=== PATIENT | male | born 2000 | race Caucasian/White ===

== ENCOUNTER 2018-03-15 09:24 | Emergency (ER) | payer BC ==
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
[2018-03-15 11:12] LABS: ABS Basophils 0.1 10^3/ul (0-0.2); ABS Eosinophils 0 10^3/ul (0-0.6); ABS Lymphocytes 1.2 10^3/ul (1.0-4.8); ABS Monocytes 0.8 10^3/ul (0-0.8); ABS Neutrophils 15.7 10^3/ul (1.5-7.7); ABS Nucleated RBC 0 10^3/ul; Eosinophil % 0 % (0-6); Hematocrit 39 % (42-52); Hemoglobin 13.4 g/dl (14.0-18.0); Lymphocyte % 6.9 % (25-47); Mean Corpuscular HGB Conc 34 g/dl (31-36); Mean Corpuscular Hemoglobin 29 pg (27-31); Mean Corpuscular Volume 84 fL (80-94); Mean Platelet Volume 9.5 um3 (7.4-10.4); Nucleated Red Blood Cells % 0; Platelet Count 171 10^3/ul (150-450); Red Blood Count 4.67 10^6/ul (4.00-5.40); Red Cell Distribution Width 13 % (10.5-15); White Blood Count 17.8 10^3/ul (3.5-10.8)
[2018-03-15 11:30] LABS: EGFR Non-African American 84.5 (>60)
--- NOTE | 2018-03-15 11:51 | RAD ---
HISTORY: Head injury, COMPARISONS: MRI dated January 09, 2018 TECHNIQUE: Multiple contiguous axial CT scans were obtained of the head without intravenous contrast. FINDINGS: HEMORRHAGE/INFARCT: There is no hemorrhage or acute infarct. MASSES/SHIFT: There is no mass or shift. EXTRA-AXIAL SPACES: There are no extra-axial fluid collections. SULCI AND VENTRICLES: The sulci and ventricles are normal in size and position for the patient's stated age. CEREBRUM: There is post surgical change to the anterior insula. The nonenhancing frontal-insular lesion noted on MRI is not visualized on the current examination. BRAINSTEM: There are no focal parenchymal abnormalities. CEREBELLUM: There are no focal parenchymal abnormalities. VESSELS: The vessels are grossly normal. PARANASAL SINUSES: The paranasal sinuses are clear. ORBITS: The orbits are unremarkable. BONES AND SOFT TISSUE: The patient is status post right frontotemporal craniotomy OTHER: None IMPRESSION: NO ACUTE INTRACRANIAL PATHOLOGY.
[2018-03-15] MEDS ORDERED: Lidocaine/Epineph/Tetraca SOL* (LET solution) 4 ML BTL TOPICAL ONE (12:57)
--- NOTE | 2018-03-15 15:18 | ED ---
Progress - Progress Note Progress Note: 4CM X 1.5CM X 4MM deep Stellate Buffered lidocaine debridement with sterile water and hibaclens w/ sponge (mild friction) - scant debridement irrigation w/ sterile saline - 40cc - clean layer closure: #5 5-0 absorbable sutures #15 6-0 poly sutures covered with triple anbx ointment and sterile telfa dressing - pt tolerated well Course/Dx - Course Course Of Treatment: A 17-year-old M presents to the ED with a CC of AMS due to LSD use since 0000. (+) laceration on forehead, intermittent syncopal episodes. (-) neck pain, SI, HI. PMHx brain cancer. A CT brain was (-). Discharge - Discharge Plan Prescriptions: Cephalexin CAP* [Keflex CAP*] 500 mg PO BID #10 cap Patient Education Materials: Care For Your Stitches (ED), Facial Laceration (ED ) Referrals: Ingrid Beck MD [Primary Care Provider] - Additional Instructions: Gently wash wound with soap and water, rinse well and pat dry with clean cloth. Reapply triple antibiotic ointment and clean gauze dressing. Continue this daily until sutures are removed. Call your PCP to schedule wound recheck and suture removal in 5-7 days. You may apply ice for pain/swelling. * If you develop redness, swelling, streaking, purulent drainage, fevers or chills, seek medical attention sooner or return to the emergency department.
[2018-03-15 16:15] VITALS: BP 146/91
== END 2018-03-15 15:45 | disposition home or self-care (01) ==
LOC: ED 09:24
DX: F16.10 Hallucinogen abuse, uncomplicated (principal); S01.81XA Laceration without foreign body of other part of head, initial encounter; W22.8XXA Striking against or struck by other objects, initial encounter; Y93.9 Activity, unspecified; Y92.9 Unspecified place or not applicable; Z85.841 Personal history of malignant neoplasm of brain
CPT/HCPCS: 12052; 36415; 70450; 80053; 80320; 80329; 84443; 85025; 99285; G0480

== ENCOUNTER 2018-12-11 14:14 | Emergency (ER) | payer BC ==
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
--- NOTE | 2018-12-11 14:22 | UC ---
Hand/Wrist HPI - HPI Summary HPI Summary: 18 yo male presents with right hand injury. He tells me that today around 1000, he became upset "at life" and punched a door frame. Since that time has had pain and swelling. He is right handed. He has done this multiple times in the past out of frustration - this is an ongoing issue and mom with him today says they are working with a therapist and med adjustments for behavior issues. Pt denies SI/HI or wanting to hurt himself or others. - History Of Current Complaint Stated Complaint: RT HAND INJURY Time Seen by Provider: 12/11/18 14:21 Hx Obtained From: Patient Onset/Duration: Sudden Onset Severity Initially: Moderate Severity Currently: Moderate Pain Intensity: 7 Pain Scale Used: 0-10 Numeric - Allergies/Home Medications Allergies/Adverse Reactions: Allergies Allergy/AdvReac Type Severity Reaction Status Date / Time codeine Allergy Hives Verified 12/11/18 14:39 Home Medications: Home Medications Ergocalciferol (Vitamin D2) [Vitamin D2] 50 mcg PO 12/11/18 [History] Escitalopram Oxalate [Lexapro 10 mg] 20 mg PO DAILY 12/11/18 [History Confirmed 12/11/18] Omeprazole CAP (NF) [Prilosec CAP* 20 MG] 20 mg PO DAILY 12/11/18 [History Confirmed 12/11/18] PMH/Surg Hx/FS Hx/Imm Hx GI/ History: Gastroesophageal Reflux Psychological History: Anxiety, Depression - Surgical History Surgical History: Yes Surgery Procedure, Year, and Place: LABRUM LT SHOULDER REPAIR- 2014, ORIF RT FOREARM- AND REMOVED 2009;. BRAIN SURGERY 10/2016 - CRANIOTOMY - @ [facility] - Family History Known Family History: Positive: None - Social History Lives: With Family Alcohol Use: None Substance Use Type: Other - LSD Smoking Status (MU): Never Smoked Tobacco Review of Systems All Other Systems Reviewed And Are Negative: Yes Constitutional: Positive: Negative Skin: Positive: Negative Respiratory: Positive: Negative Cardiovascular: Positive: Negative Neurovascular: Positive: Negative Musculoskeletal: Positive: Other: - Right hand pain Neurological: Positive: Negative Psychological: Positive: Negative Physical Exam - Summary Physical Exam Summary: GENERAL: NAD. WDWN. No pain distress. SKIN: No rashes, sores, lesions, or open wounds. CHEST: No accessory muscle use. Breathing comfortably and in no distress. CV: Pulses intact radial and ulnar. Cap refill <2seconds MSK: RIGHT HAND: Moderate edema and mild ecchymosis overlying dorsal aspect of 4th and 5th MC. FROM with little pain. Strength 5/5 including actuarial technician strength. No snuffbox tenderness or wrist pain. NEURO: Alert. Sensations intact hand and all fingers. PSYCH: Age appropriate behavior. Triage Information Reviewed: Yes Vital Signs: Vital Signs: Temp Pulse Resp BP Pulse Ox 98.9 F 49 18 130/80 99 12/11/18 14:31 12/11/18 14:31 12/11/18 14:31 12/11/18 14:31 12/11/18 14:31 Vital Signs Reviewed: Yes Procedures - Splinting Right Upper Extremity Hand-Made Type: orthoglass Splint: ulnar Pre-Proc Neuro Vasc Exam: normal Post-Proc Neuro Vasc Exam: normal Hand/Wrist Course/Dx - Course Course Of Treatment: XR: REPORT AND IMPRESSION: #. Nonarticular diaphyseal fracture of the fourth metacarpal with only slight apex dorsal angulation. Overlying soft tissue swelling. #. Chronic fracture at the proximal pole of the scaphoid based on comparison with the February 20, 2016 radiographs. The scaphoid is irregular in morphology with sclerosis and cystic change suspicious for AVN. #. 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 Articular alignment is otherwise unremarkable. Pt was placed in an ulnar-gutter splint and advised to RICE and f/u with Orthopedics as soon as possible. - Differential Dx/Diagnosis Provider Diagnosis: Fracture of fourth metacarpal bone of right hand Discharge - Sign-Out/Discharge Documenting (check all that apply): Patient Departure All imaging exams completed and their final reports reviewed: Yes - Discharge Plan Condition: Stable Disposition: HOME Patient Education Materials: Hand Fracture (ED) Referrals: Ingrid Beck MD [Primary Care Provider] - Ce Nair MD [Medical Doctor] - As Soon As Possible Additional Instructions: If you develop a fever, shortness of breath, chest pain, new or worsening symptoms - please call your PCP or go to the ED. 1) Rest, Ice, and elevate your hand as much as possible 2) Please keep your splint clean dry and intact until your appointment with Orthopedics 3) Please call Orthopedics at the number below to schedule a follow up appointment as soon as possible - Billing Disposition and Condition Condition: STABLE Disposition: Home - Attestation Statements Provider Attestation: I was available for consult. This patient was seen by the [facility]. The patient was not presented to, seen by, or examined by me. -Maxine
[2018-12-11 14:39] VITALS: BP 130/80
== END 2018-12-11 14:53 | disposition home or self-care (01) ==
LOC: UCEAST 14:14
DX: S62.304A Unspecified fracture of fourth metacarpal bone, right hand, initial encounter for closed fracture (principal); W22.09XA Striking against other stationary object, initial encounter; Y92.9 Unspecified place or not applicable; K21.9 Gastro-esophageal reflux disease without esophagitis; F41.9 Anxiety disorder, unspecified; F32.9 Major depressive disorder, single episode, unspecified; Z88.5 Allergy status to narcotic agent
CPT/HCPCS: 99211; G0463

== ENCOUNTER 2019-08-01 16:06 | Emergency (ER) | payer BC ==
[2019-08-01 16:17] VITALS: BP 132/78
== END 2019-08-01 17:35 | disposition left against medical advice (07) ==
LOC: ED 16:06
DX: R07.9 Chest pain, unspecified (principal); Z53.21 Procedure and treatment not carried out due to patient leaving prior to being seen by health care provider
CPT/HCPCS: 93005; 99281

== ENCOUNTER 2019-08-07 14:03 | Inpatient (IN) | payer BC ==
--- NOTE | 2019-08-07 15:38 | ED ---
Psychiatric Complaint - HPI Summary HPI Summary: Patient is a 19 y/o M presenting to [facility] with complaints of increased anger and aggression, anxiety, and depression. He states that he has had increased anger over the past month and has been taking this anger "out on the wrong people". Patient states that he does not have "outlets" for his anger. He states he "bugged out" on his mother today, did some "self-reflection", and subsequently came to ED for evaluation. Patient' s sister is in the room. She states that the patient has been acting increasingly irrational and in a nonsensical manner. Patient notes that he had felt similar in high school but states that football helped alleviate his anger. He denies SI and hallucinations. Patient reports that he has not physically taken out his anger on another person but states "I could really do some damage if I wanted to". PMHx of brain tumor and right aortic stenosis is endorsed. Patient states that he had tumor removal surgery, tumor was partially removed but the remainder was deemed "unoperable". Patient is on omeprazole and vitamin D3. He reports occasional tobacco usage. He notes some numbness to his left side that has been present for the past few weeks. He is being followed by a neurologist for this. Home medications and allergies are reviewed. - History Of Current Complaint Chief Complaint: EDMentalHealth Time Seen by Provider: 08/07/19 14:48 Hx Obtained From: Patient Onset/Duration: Lasting Weeks, Still Present Timing: Weeks Character: Depressed, Anxious, Angry Associated Signs And Symptoms: Negative: Hallucinating Has Suicidal: Denies: Thoughts - Allergies/Home Medications Allergies/Adverse Reactions: Allergies Allergy/AdvReac Type Severity Reaction Status Date / Time codeine Allergy Hives Verified 08/07/19 14:11 Home Medications: Home Medications Cholecalciferol (Vitamin D3) [Vitamin D3] 125 mcg PO DAILY 08/07/19 [History Confirmed 08/07/19] Omeprazole 20 mg PO DAILY 08/07/19 [History Confirmed 08/07/19] PMH/Surg Hx/FS Hx/Imm Hx Endocrine/Hematology History: Denies: Hx Diabetes, Hx Thyroid Disease Cardiovascular History: Denies: Hx Hypertension, Hx Pacemaker/ICD Respiratory History: Denies: Hx Asthma, Hx Chronic Obstructive Pulmonary Disease (COPD) GI History: Denies: Hx Ulcer History: Denies: Hx Renal Disease Musculoskeletal History: Reports: Other Musculoskeletal History - HEART STENOSIS Sensory History: Denies: Hx Contacts or Glasses, Hx Hearing Aid Opthamlomology History: Denies: Hx Contacts or Glasses Psychiatric History: Denies: Hx Panic Disorder - Cancer History Cancer Type, Location and Year: BRAIN - ASTROCYTOMA Hx Chemotherapy: No Hx Radiation Therapy: Yes - DONE WITH RADIATION - Surgical History Surgery Procedure, Year, and Place: LABRUM LT SHOULDER REPAIR- 2014, ORIF RT FOREARM- AND REMOVED 2009;. BRAIN SURGERY 10/2016 - CRANIOTOMY - @ [facility] Infectious Disease History: No Infectious Disease History: Denies: Hx Hepatitis, Hx Human Immunodeficiency Virus (HIV), Traveled Outside the in Last 30 Days - Family History Known Family History: Negative: Seizure Disorder - Social History Alcohol Use: None Hx Substance Use: Yes Substance Use Type: Reports: None Substance Use Comment - Amount & Last Used: daily Hx Tobacco Use: No Smoking Status (MU): Current Some Day Smoker Type: Cigarettes Review of Systems Positive: Numbness Psychological: Other - positive - increased aggression and anger; negative - SI , hallucinations Positive: Anxious, Depressed All Other Systems Reviewed And Are Negative: Yes Physical Exam - Summary Physical Exam Summary: Constitutional: Well-developed, Well-nourished, Alert. (-) Distressed Skin: Warm, Dry HENT: Normocephalic; Atraumatic Eyes: Conjunctiva normal Neck: Musculoskeletal ROM normal neck. (-) JVD, (-) Stridor, (-) Tracheal deviation Cardio: Rhythm regular, rate normal, Heart sounds normal; Intact distal pulses; Radial pulses are 2+ and symmetric. (-) Murmur Pulmonary/Chest wall: Effort normal. (-) Respiratory distress, (-) Wheezes, (-) Rales Abd: Soft, (-) tenderness, (-) Distension, (-) Guarding, (-) Rebound Musculoskeletal: (-) Edema Lymph: (-) Cervical adenopathy Neuro: Alert, Oriented x3 Psych: Depressed affect Triage Information Reviewed: Yes Vital Signs On Initial Exam: Initial Vitals Temp Pulse Resp BP Pulse Ox 99.4 F 66 16 157/115 100 08/07/19 14:06 08/07/19 14:06 08/07/19 14:06 08/07/19 14:06 08/07/19 14:06 Vital Signs Reviewed: Yes Procedures - Sedation Patient Received Moderate/Deep Sedation with Procedure: No Diagnostics - Vital Signs Vital Signs Temp Pulse Resp BP Pulse Ox 08/07/19 14:06 99.4 F 66 16 157/115 100 - Laboratory Result Diagrams: 08/07/19 16:21 08/07/19 16:20 Lab Statement: Any lab studies that have been ordered have been reviewed, and results considered in the medical decision making process. Re-Evaluation - Re-Evaluation First Eval Re-Evaluation Time: 15:40 Comment: Medically cleared for MHE at this time. Course/Dx - Course Course Of Treatment: Patient is here with worsening anger over the past couple of weeks secondary to his diagnosed brain tumor. Patient has no neurologic deficits and is overall well-appearing. Patient's no new neurologic complaints. Patient is medically cleared by myself. Patient signout to Dr. Barr pending mental health eval - Differential Dx/Clinical Impression Provider Diagnosis: Depression, Anger, Mood disorder Discharge ED - Sign-Out/Discharge Documenting (check all that apply): Sign-Out Patient Signing out patient TO: Ilan Simmons - Discharge Plan Condition: Stable Disposition: [facility]IATRIC FAC[facility] [place] - Billing Disposition and Condition Condition: STABLE Disposition: Psychiatric Facility [facility] - Attestation Statements Document Initiated by Scribe: Yes Documenting Scribe: ORALIA GARRIDO Provider For Whom Rosa is Documenting (Include Credential): CIRO BURGOS MD Scribe Attestation: ORALIA Milan, scribed for CIRO BURGOS MD on 08/08/19 at 1055. Scribe Documentation Reviewed: Yes Provider Attestation: The documentation as recorded by the ORALIA neves accurately reflects the service I personally performed and the decisions made by me, CIRO BURGOS MD Status of Scribe Document: Viewed
[2019-08-07 16:31] LABS: ABS Basophils 0.1 10^3/ul (0-0.2); ABS Lymphocytes 2.4 10^3/ul (1.0-4.8); ABS Monocytes 0.4 10^3/ul (0-0.8); ABS Neutrophils 6.8 10^3/ul (1.5-7.7); Eosinophil % 0.4 %; Hematocrit 43 % (42-52); Hemoglobin 15.4 g/dL (14.0-18.0); Lymphocyte % 24.8 %; Mean Corpuscular HGB Conc 35 g/dL (31-36); Mean Corpuscular Hemoglobin 30 pg (27-31); Mean Corpuscular Volume 84 fL (80-94); Mean Platelet Volume 9.4 fL (7.4-10.4); Platelet Count 213 10^3/uL (150-450); Red Blood Count 5.14 10^6 /uL (4.18-5.48); Red Cell Distribution Width 13 % (10-15); White Blood Count 9.8 10^3/uL (3.5-10.8)
--- OUTSIDE RECORDS SUMMARY | 2019-08-07 16:49 | XMS REPORT | Continuity of Care Document ---
:2000 External Reference #:[id number] Author Name Alycia Darden M.D., FACP (transmitted by agent of provider Karen Beaver) Address [address] [place] [id number] Care Team Providers Name Role Phone Ingrid Beck MD - Internal Care Team Information Gas Meter Repair Supervisor [phone] Medicine Nanci Alas MD - Cardiovascular Care Team Information Gas Meter Repair Supervisor [phone] Disease Problems Active Problems Provider Date Concussion with 1-24 hours loss of Joe Padilla M.D. 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 Onset: 09/04/2015 Aortic valve disorder Carlos Ward M.D. Onset: 12/20/2017 Gastroesophageal reflux disease Carlos Ward M.D. Onset: 12/20/2017 Congenital insufficiency of aortic valve Nanci Alas M.D. Onset: 09/08/2018 Social History Type Date Description Comments Sex Unknown ETOH Use Denies alcohol use Tobacco Use Start: Unknown Patient has never smoked Recreational Drug Use Negative For Denies Drug Use Recreational Drug Use Current Drug User Recreational Drug Use Current Drug User franklin Document: 09/08/18 - Initial Cons. Cardiology Smoking Status Reviewed: 08/02/19 Patient has never smoked Exercise Type/Frequency Exercises sporadically Allergies, Adverse Reactions, Alerts Active Allergies Reaction Severity Comments Date Codeine 08/31/2018 Inactive Allergies NKDA 05/19/2015 Medications Active Medications SIG Qnty Indications Ordering Date Provider Levocetirizine 1 by mouth 30tabs J30.89 Miguel Vitale NP 02/05/2019 Dihydrochloride every day 5mg Tablets Hydroxyzine HCL 1-2 tablets by 60tabs F41.9 Miguel Vitale NP 02/05/2019 25mg Tablets mouth every 6 hours as needed for anxiety Escitalopram Oxalate 1 by mouth 90tabs F41.9 Miguel Vitale NP 12/08/2018 20mg every day Tablets Fluticasone Propionate 2 sprays each 16gm J30.89 Miguel Vitale NP 11/20/2018 nostril qd. 50mcg/Act Suspension Vitamin D3 Ultra Potency 1 by mouth once 12tabs Miguel Vitale NP 10/22/2018 weekly for 12 20131Ohqw Tablets weeks. Omeprazole Take 1 capsule 30caps K21.9 Miguel Vitale NP 10/16/[address] by mouth once daily Immunizations Description No Information Available Vital Signs Date Vital Result Comment 08/02/2019 11:35am Height 72 inches 6'0" Weight 219.00 lb Heart Rate 63 /min BP Systolic 144 mmHg BP Diastolic 92 mmHg Body Temperature 98.4 F O2 % BldC Oximetry 98 % BMI (Body Mass Index) 29.7 kg/m2 02/05/2019 1:46pm Height 72 inches 6'0" Weight 234.00 lb Heart Rate 48 /min BP Systolic Sitting 138 mmHg BP Diastolic Sitting 80 mmHg BP Systolic Recheck 124 mmHg BP Diastolic Recheck 76 mmHg Body Temperature 98.2 F O2 % BldC Oximetry 96 % BMI (Body Mass Index) 31.7 kg/m2 Results Test Acquired Date Facility Test Result H/L Range Note Order 08/02/2019 [facility]-House EKG <pending> Procedures Date Code Description Status 08/02/2019 58313 EKG Tracing & Interpretation Completed Medical Devices Description No Information Available Encounters Type Date Location Provider Dx Diagnosis Office Visit 02/05/2019 [facility] Miguel Vitale NP F41.9 Anxiety disorder , 1:40p Medicine - [facility] unspecified J30.89 Other allergic rhinitis K21.9 Gastro-esophageal reflux disease without esophagitis Assessments Date Code Description Provider 08/02/2019 I47.9 Paroxysmal tachycardia, unspecified Alycia Darden M.D., FACP 08/02/2019 R53.83 Other fatigue Alycia Darden M.D., FACP 02/05/2019 F41.9 Anxiety disorder, unspecified Miguel Vitale NP 02/05/2019 J30.89 Other allergic rhinitis Miguel Vitale NP 02/05/2019 K21.9 Gastro-esophageal reflux disease without Miguel Vitale NP esophagitis Plan of Treatment Future Appointment(s):08/08/2019 4:20 pm - [facility] - Alycia Darden M.D., FACPI47.9 Paroxysmal tachycardia , unspecifiedComments:HEART RACING:I do not have a clear understanding of why this symptom is occurring. I would like to have you repeat an echocardiogram. Your last one was in 09/16.Your EKG today was normal. Try to keep a log of when your symptoms occur and in what context.Referral:Nanci Alas MD, Cardiovsclr DljiukfN45.83 Other fatigueComments:FATIGUE/ PM SWEATS:I would like to check some labs today. We talked about TB testing: unfortunately, we cannot place a ppd today.An entity that I would like to exclude is endocarditis since your heartvalve is known to be abnormal. For now, until we generate more data, I recommend that you keep yourself well hydrated.Follow up:Has appointment with Jessica Vitale: keep Functional Status Description No Information Available Mental Status Description No Information Available Referrals Refer to Reason for Referral Status Appt Date Nanci Alas MD pls repeat echo: 2 weeks of PM sweats, exclude Created [facility] [id number] [place] [id number] [phone]
[2019-08-07 16:56] LABS: Albumin 4.8 g/dL (3.2-5.2); Anion Gap 7 mmol/L (2-11); CO2 Carbon Dioxide 26 mmol/L (22-32); Calcium 9.8 mg/dL (8.6-10.3); Chloride 105 mmol/L (101-111); Potassium 4.4 mmol/L (3.5-5.0); Sodium 138 mmol/L (135-145)
[2019-08-07 17:02] LABS: ALT 23 U/L (7-52); AST 16 U/L (13-39); Albumin/Globulin Ratio 1.5 (1-3); Alkaline Phosphatase 47 U/L (34-104); BUN/Creatinine Ratio 13.7 (8-20); Blood Urea Nitrogen 14 mg/dL (6-24); EGFR African American 111.6 (>60); EGFR Non-African American 92.2 (>60); Globulin 3.2 g/dL (2-4)
[2019-08-07 17:17] LABS: Glucose 90 mg/dL (70-100)
[2019-08-07 17:25] LABS: Acetaminophen < 15 mcg/mL; Alcohol < 10 mg/dL (<10); Salicylate < 2.50 mg/dL (<30)
--- NOTE | 2019-08-07 19:33 | ED ---
Progress - Progress Note Progress Note: Patient is a sign-out at 19:00 on 08/07/[address] Hebert Foreman MD to Dr. Ilan Simmons MD at shift change, pending MHE and disposition. At 21:13, medical billing manager reports that the patients case was reviewed by Dr. Lu who will admit the patient to [facility] with a diagnosis of mood disorder. Re-Evaluation - Re-Evaluation First Eval Re-Evaluation Time: 15:40 Comment: Medically cleared for MHE at this time. Course/Dx - Course Course Of Treatment: Patient is a sign-out at 19:00 on 08/07/[address] Hebert Foreman MD to Dr. Ilan Simmons MD at shift change, pending MHE and disposition. At 21:13, medical billing manager reports that the patients case was reviewed by Dr. Lu who will admit the patient to [facility] with a diagnosis of mood disorder. - Diagnoses Provider Diagnoses: Depression, Anger, Mood disorder - Provider Notifications Discussed Care Of Patient With: Unruly Lu - At 21:13, medical billing manager reports that the patients case was reviewed by Dr. Lu who will admit the patient to [facility] with a diagnosis of mood disorder. Time Discussed With Above Provider: 21:13 Instructed by Provider To: Admit As Inpatient Discharge ED - Sign-Out/Discharge Documenting (check all that apply): Patient Departure - Admit, Receiving Sign- Out Receiving patient FROM: Hebert Foreman - Patient is a sign-out at 19:00 on 06/[address] Hebert Foreman MD to Dr. Ilan Simmons MD at shift change, pending MHE and disposition. - Discharge Plan Condition: Stable [place]position: [place] [place] [place] Billing Disposition and Condition Condition: STABLE Disposition: Psychiatric Facility [facility] [place] - Attestation Statements Document Initiated by Scribe: Yes Documenting Scribe: Olena Weinstein Provider For Whom Rosa is Documenting (Include Credential): Ilan Simmons MD Scriblyn Attestation: Olena Milan, scribed for Ilan Simmons MD on 08/08/19 at 0622. Scribe Documentation Reviewed: Yes Provider Attestation: The documentation as recorded by the Olena neves accurately reflects the service I personally performed and the decisions made by me, Ilan Simmons MD Status of Scribe Document: Viewed
[2019-08-08] MEDS ORDERED: Al Hydrox/Mg Hydrox/Simet LIQ* 30 ML UDC PO PRN (04:32)
[2019-08-08] MEDS ORDERED: Acetaminophen TAB* 325 MG PO PRN (04:32)
[2019-08-08 08:17] LABS: HDL Cholesterol 45.9 mg/dL
[2019-08-08] MEDS: Vitamin THERAPEUTIC TAB PO SCH (09:31)
[2019-08-08] MEDS: Pantoprazole TAB * 40 MG TAB PO SCH (15:48)
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
[2019-08-08] MEDS ORDERED: Escitalopram * 10 MG TAB PO SCH (21:00)
[2019-08-09] MEDS: hydrOXYzine HCL TAB* 25 MG PO PRN ×2 (02:25→09:38)
[2019-08-09] MEDS: Pantoprazole TAB * 40 MG TAB PO SCH (09:38)
[2019-08-09] MEDS: Vitamin THERAPEUTIC TAB PO SCH (09:38)
[2019-08-09 09:49] VITALS: BP 140/77
--- NOTE | 2019-08-09 11:36 | PN ---
BSU: Group Therapy Note - Service Type Service Type: 68515 Group Psychotherapy - Cognitive Behavioral Group Therapy ( CBT):Patient was attentive and participatory in CBT programming this morning, and remained in good behavioral control. Patient expressed positive insights regarding relevant treatment interventions and goals.
--- NOTE | 2019-08-09 13:45 | DCNOTE ---
Subjective - Subjective Service Types: 94816 Hosp DC Day Mgmt simple under 30 min Discharge Date: 08/09/19 Subjective: Reno reports feeling "good" and expresses appreciation for unit and staff. He states being here was helpful in starting his recovery. He denies SI/HI/ or passive wish. He states he feels supported by family and girlfriend. He is pleasant and well-related, in behavioral control. In fact, he utilized hydroxyzine when agitated by a peer and reported this to be very helpful. Objective - General Observations Appearance: Well Groomed Stature: WNL Posture: WNL Eye Contact: Average Behavior/Activity: WNL - Interaction Observations Attitude Towards Examiner: Cooperative Stated Mood: Euthymic Affect: Bright Speech Pattern/Tone: Clear, Appropriate, Normal Volume Thought Process: Coherent, Goal Directed Perception: WNL Thought Content: WNL Hallucination Type: Denies Delusion Type: Denies - Cognitive Function Orientation: A&O x 4 Level of Consciousness: Alert Cognition: WNL Estimated Intelligence: Normal Insight: WNL Judgment Within Normal Limits: Yes - Medication Compliance Cooperative with Inpatient Medication Regimen: Yes - Group Participation Participates in Group Activities: Yes DC Assessment - Assessment Clinical Impression: First psychiatric hospitalization for 19yo male who presented to ED with thoughts of harming others and difficulty with anxiety. He has stabilized in this structured setting and is agreeable to ongoing therapy in outpatient setting. Merits Inpatient Hospitalization: No Clear for Discharge: Adequate Clinical Respons, Acceptable Safety Profile Inpatient DSM-V Dx: F33.9 Discharge Planning - Discharge Planning Discharge Plan: Outpatient Follow Up Outpatient Program: [facility] Recommendations for Continuing Care: Medication Management, Psychotherapy, Primary Care Followup Medications: Current Medications Escitalopram Oxalate (Lexapro *) 10 mg PO BEDTIME [facility] Last Admin: 08/08/19 20:04 Dose: 10 mg Hydroxyzine HCl (Atarax Tab*) 25 mg PO Q4H PRN PRN Reason: ANXIETY Last Admin: 08/09/19 09:38 Dose: 25 mg Pantoprazole Sodium (Protonix Tab*) 40 mg PO DAILY DENISE Last Admin: 08/09/19 09:38 Dose: 40 mg Discharge Planning: Prescriptions provided for discharge [x] Yes [] No Follow up care details as per social work arrangements: [facility]- Miguel Vitale NP Patient response to discharge plan: [x] eager for discharge [x] agreeable with discharge plan [] ambivalent about discharge [] disagrees with discharge today
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
== END 2019-08-09 15:10 | disposition home or self-care (01) | DRG 753 ==
LOC: ED 14:03 → BSU 20:53
PROVIDERS: ADMIT Psychiatry & Neurology Psychiatry; ATTEND Psychiatry & Neurology Psychiatry
PROC: GZHZZZZ Group Psychotherapy (ICD-10-PCS; principal; 2019-08-09)
DX: F33.8 Other recurrent depressive disorders (principal); F41.1 Generalized anxiety disorder; K21.9 Gastro-esophageal reflux disease without esophagitis; I35.0 Nonrheumatic aortic (valve) stenosis; F17.210 Nicotine dependence, cigarettes, uncomplicated; Z87.820 Personal history of traumatic brain injury; Z85.841 Personal history of malignant neoplasm of brain; Z92.3 Personal history of irradiation; Z88.5 Allergy status to narcotic agent; Z79.899 Other long term (current) drug therapy
CPT/HCPCS: 36415; 80053; 80061; 80320; 80329; 83036; 85025; 90853; 99222; 99238; 99284; A9270-GY; G0480

== ENCOUNTER 2019-09-30 14:17 | Emergency (ER) | payer BC ==
--- OUTSIDE RECORDS SUMMARY | 2019-09-30 14:23 | XMS REPORT | Continuity of Care Document ---
:2000 External Reference #:[id number] Author Name Miguel Vitale NP (transmitted by agent of provider Denice Lam) Address [address] [place] [address], [place] [address] Care Team Providers Name Role Phone Ingrid Beck MD - Internal Care Team Information [facility] Nanci Alas MD - Cardiovascular Care Team Information [facility] [phone] Disease Problems Active Problems Provider Date Concussion [...] - Initial Cons. Cardiology Smoking Status Reviewed: 08/15/19 Patient has never smoked Exercise Type/Frequency Exercises sporadically Allergies, Adverse Reactions, Alerts Active Allergies Reaction Severity Comments Date Codeine 08/31/2018 Inactive Allergies NKDA 05/19/2015 Medications Active Medications SIG Qnty Indications Ordering Date Provider Escitalopram Oxalate 1 by mouth F41.9 Miguel Vitale NP 08/15/2019 10mg every day Tablets Levocetirizine 1 by mouth 30tabs J30.89 Miguel Vitale NP 02/05/2019 Dihydrochloride every day 5mg Tablets Hydroxyzine HCL 1-2 tablets by 60tabs F41.9 Miguel Vitale NP 02/05/2019 25mg Tablets mouth every 6 hours as needed for anxiety Fluticasone Propionate 2 sprays each 16gm J30.89 Miguel Vitale NP 11/20/2018 nostril qd. 50mcg/Act Suspension Vitamin D3 Ultra Potency 1 by mouth once 12tabs Miguel Vitale NP 10/22/2018 weekly for 12 57323Sgcy Tablets weeks. Omeprazole Take 1 capsule 30caps K21.9 Miguel Vitale NP 10/16/[address] by mouth once daily Immunizations Description No Information Available Vital Signs Date Vital Result Comment 08/15/2019 2:04pm Height 72 inches 6'0" Weight 217.38 lb Heart Rate 67 /min BP Systolic 153 mmHg BP Diastolic 84 mmHg Body Temperature 99.2 F O2 % BldC Oximetry 99 % BMI (Body Mass Index) 29.5 kg/m2 08/02/2019 11:35am Height 72 inches 6'0" Weight 219.00 lb Heart Rate 63 /min BP Systolic 144 mmHg BP Diastolic 92 mmHg Body Temperature 98.4 F O2 % BldC Oximetry 98 % BMI (Body Mass Index) 29.7 kg/m2 Results Test Acquired Date Facility Test Result H/L Range Note CBC Auto 08/07/2019 [facility] White Blood 9.8 10^3/uL Normal 3.5-10.[address] [place] [address] [phone] Red Blood Count 5.14 10^6/uL Normal 4.18-5.48 Hemoglobin 15.4 g/dL Normal 14.0-18.0 Hematocrit 43 % Normal 42-52 Mean Corpuscular Volume 84 fL Normal 80-94 Mean Corpuscular Hemoglobin 30 pg Normal 27-31 Mean Corpuscular HGB Conc 35 g/dL Normal 31-36 Red Cell Distribution Width 13 % Normal 10-15 Platelet Count 213 10^3/uL Normal 150-450 Mean Platelet Volume 9.4 fL Normal 7.4-10.4 Abs Neutrophils 6.8 10^3/uL Normal 1.5-7.7 Abs Lymphocytes 2.4 10^3/uL Normal 1.0-4.8 Abs Monocytes 0.4 10^3/uL Normal 0-0.8 Abs Eosinophils 0.0 10^3/uL Normal 0-0.6 Abs Basophils 0.1 10^3/uL Normal 0-0.2 Abs Nucleated RBC 0.0 10^3/uL Granulocyte % 69.5 % Lymphocyte % 24.8 % Monocyte % 4.6 % Eosinophil % 0.4 % Basophil % 0.7 % Nucleated Red Blood Cells % 0.0 Comp Metabolic 08/07/2019 [facility] Sodium 138 mmol/L Normal 135-[address] [place] [address] [phone] Potassium 4.4 mmol/L Normal 3.5-5.0 Chloride 105 mmol/L Normal 101-111 Co2 Carbon Dioxide 26 mmol/L Normal 22-32 Anion Gap 7 mmol/L Normal 2-11 Calcium 9.8 mg/dL Normal 8.6-10.3 Albumin 4.8 g/dL Normal 3.2-5.2 Total Bilirubin 0.70 mg/dL Normal 0.2-1.0 Blood Urea Nitrogen 14 mg/dL Normal 6-24 Creatinine 1.02 mg/dL Normal 0.67-1.17 BUN/Creatinine Ratio 13.7 Normal 8-20 Total Protein 8.0 g/dL Normal 6.4-8.9 Globulin 3.2 g/dL Normal 2-4 Albumin/Globulin Ratio 1.5 Normal 1-3 Alkaline Phosphatase 47 U/L Normal 34-104 Alt 23 U/L Normal 7-52 Ast 16 U/L Normal 13-39 Egfr Non- 92.2 >60 Egfr 111.6 >60 1 Glucose 90 mg/dL Normal 70-100 Laboratory test 08/07/2019 [facility] Acetaminophen < 15 g/mL [address] [place] [address] [phone] Alcohol < 10 mg/dL Normal <10 Salicylate < 2.50 mg/dL <30 CBC Auto 08/02/2019 [facility] White Blood 10.3 10^3/uL Normal 3.5-10.[address] [place] [address] [phone] Red Blood Count 5.36 10^6/uL Normal 4.18-5.48 Hemoglobin 15.7 g/dL Normal 14.0-18.0 Hematocrit 46 % Normal 42-52 Mean Corpuscular Volume 85 fL Normal 80-94 Mean Corpuscular Hemoglobin 29 pg Normal 27-31 Mean Corpuscular HGB Conc 34 g/dL Normal 31-36 Red Cell Distribution Width 13 % Normal 10-15 Platelet Count 210 10^3/uL Normal 150-450 Mean Platelet Volume 9.6 fL Normal 7.4-10.4 Abs Neutrophils 7.9 10^3/uL High 1.5-7.7 Abs Lymphocytes 2.0 10^3/uL Normal 1.0-4.8 Abs Monocytes 0.3 10^3/uL Normal 0-0.8 Abs Eosinophils 0.0 10^3/uL Normal 0-0.6 Abs Basophils 0.1 10^3/uL Normal 0-0.2 Abs Nucleated RBC 0.1 10^3/uL Granulocyte % 76.7 % Lymphocyte % 19.6 % Monocyte % 3.1 % Eosinophil % 0.1 % Basophil % 0.5 % Nucleated Red Blood Cells % 0.6 Comp Metabolic 08/02/2019 [facility] Sodium 138 mmol/L Normal 135-[address] [place] [address] [phone] Potassium 4.8 mmol/L Normal 3.5-5.0 Chloride 104 mmol/L Normal 101-111 Co2 Carbon Dioxide 27 mmol/L Normal 22-32 Anion Gap 7 mmol/L Normal 2-11 Glucose 104 mg/dL High 70-100 Blood Urea Nitrogen 16 mg/dL Normal 6-24 Creatinine 1.03 mg/dL Normal 0.67-1.17 BUN/Creatinine Ratio 15.5 Normal 8-20 Calcium 11.0 mg/dL High 8.6-10.3 Total Protein 8.0 g/dL Normal 6.4-8.9 Albumin 5.1 g/dL Normal 3.2-5.2 Globulin 2.9 g/dL Normal 2-4 Albumin/Globulin Ratio 1.8 Normal 1-3 Total Bilirubin 0.80 mg/dL Normal 0.2-1.0 Alkaline Phosphatase 49 U/L Normal 34-104 Alt 20 U/L Normal 7-52 Ast 14 U/L Normal 13-39 Egfr Non- 91.2 >60 Egfr 110.3 >60 3 Laboratory 08/02/2019 [facility] LDH 121 U/L Low 140-271 test finding [address] [place] [address] [phone] HIV 1&2 p24 08/02/2019 [facility] HIV 4th Nonreactive Nonreactive Screen [address] [place] [address] [phone] Order 08/02/2019 [facility] In-House EKG <pending> 1 Because ethnic data is not always [...] 5 Kidney failure <15 (or dialysis) 2 Therapeutic concentration: <50 ug/mL Toxic concentration: >120 ug/mL 3 Because ethnic data is not always readily [...] 15-29 5 Kidney failure <15 (or dialysis) Procedures Date Code Description Status 08/06/2019 46202 ECHO Transthorasic Realtime 2D W Doppler & Color Flow Hosp Completed 08/06/2019 59313 ECHO Transthorasic Realtime 2D W Doppler & Color Flow Hosp Completed 08/02/2019 63183 EKG Tracing & Interpretation Completed Medical Devices Description No Information Available Encounters Type Date Location Provider Dx Diagnosis Office Visit 08/02/2019 [facility] Internal Alycia Darden, I47.9 [facility] F[facility] tachycardia, unspecified R61 Generalized hyperhidrosis Z85.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 08/06/2019 R50.9 Fever, unspecified Traveling ECHO 1 08/02/2019 I47.9 Paroxysmal tachycardia, unspecified Alycia Darden M.D., FACP 08/02/2019 R61 Generalized hyperhidrosis Alycia Darden M.D., FACP 08/02/2019 Z85.841 Personal history of malignant neoplasm of Alycia Darden M.D., [facility] brain Plan of Treatment 08/15/2019 - Miguel Vitale NPF41.9 Anxiety disorder, unspecifiedNew Medication: Escitalopram Oxalate 10 mg - 1 by mouth every dayComments:I am glad that you are feeling better. Continue following with mental health. Functional Status Description No Information Available Mental Status Description No Information Available Referrals Refer to Dr Reason for Referral Status Appt Date Nanci Alas MD pls repeat echo: 2 weeks of PM sweats, exclude Sent 2018 [facility] [address] [place] [address] [phone]
[2019-09-30 14:25] VITALS: BP 136/84
--- NOTE | 2019-09-30 15:02 | UC ---
Respiratory Complaint HPI - HPI Summary HPI Summary: For about 4 days he has had sinus fullness with mild pain and congestion. He saw some blood yesterday when he blew his nose. He has a mild sore throat and cough also. He has had problems with his sinuses since he was young. - History of Current Complaint Chief Complaint: UCGeneralIllness Stated Complaint: SINUS CONGESTION Time Seen by Provider: 09/30/19 14:53 Hx Obtained From: Patient Onset/Duration: Gradual Onset, Lasting Days Severity Initially: Mild Severity Currently: Mild Pain Intensity: 0 Character: Cough: Nonproductive Aggravating Factors: Nothing Alleviating Factors: Nothing Associated Signs And Symptoms: Positive: Nasal Congestion - Allergies/Home Medications Allergies/Adverse Reactions: Allergies Allergy/AdvReac Type Severity Reaction Status Date / Time codeine Allergy Hives Verified 09/30/19 14:25 Home Medications: Home Medications Fluticasone NASAL SPRAY 50MCG* [Flonase NASAL SPRAY 50MCG*] 2 spray BOTH NARES DAILY 09/30/19 [History Confirmed 09/30/19] PMH/Surg Hx/FS Hx/Imm Hx Previously Healthy: Yes - Surgical History Surgical History: Yes Surgery Procedure, Year, and Place: LABRUM LT SHOULDER REPAIR- 2014, ORIF RT FOREARM- AND REMOVED 2009;. BRAIN SURGERY 10/2016 - CRANIOTOMY - @ [facility] - Family History Known Family History: Positive: None Negative: Seizure Disorder - Social History Alcohol Use: None Substance Use Type: None Substance Use Comment - Amount & Last Used: daily Smoking Status (MU): Current Some Day Smoker Type: Cigarettes - Immunization History Most Recent Influenza Vaccination: 07/2019 Most Recent Pneumonia Vaccination: never Review of Systems All Other Systems Reviewed And Are Negative: Yes Constitutional: Positive: Negative Skin: Positive: Negative ENT: Positive: Sore Throat, Nasal Discharge, Sinus Congestion, Sinus Pain/ Tenderness Respiratory: Positive: Cough Physical Exam - Summary Physical Exam Summary: He is nontoxic in appearance with stable vital signs. Triage Information Reviewed: Yes Appearance: Well-Appearing Vital Signs: Initial Vital Signs Temp 99.2 F 09/30/19 14:22 Pulse 88 09/30/19 14:22 Resp 18 09/30/19 14:22 BP 136/84 09/30/19 14:22 Pulse Ox 99 09/30/19 14:22 Vital Signs Reviewed: Yes ENT: Positive: Pharynx normal - Sinuses transilluminate, Nasal congestion, Nasal drainage, TMs normal Neck exam: Normal Respiratory Exam: Normal Cardiovascular Exam: Normal Respiratory Course/Dx - Course Course Of Treatment: This is likely a viral process. Influenza is a possibility but it is outside the window of treatment. I recommended decongestants and symptomatic treatment with Mee-D. - Differential Dx/Diagnosis Provider Diagnosis: Viral sinusitis Discharge ED - Sign-Out/Discharge Documenting (check all that apply): Patient Departure All imaging exams completed and their final reports reviewed: No Studies - Discharge Plan Condition: Stable Disposition: HOME Patient Education Materials: Rhinosinusitis (ED) Referrals: Miguel Vitale NP [Primary Care Provider] - - Billing Disposition and Condition Condition: STABLE Disposition: Home
== END 2019-09-30 15:05 | disposition home or self-care (01) ==
LOC: UCEAST 14:17
DX: J32.9 Chronic sinusitis, unspecified (principal); B97.89 Other viral agents as the cause of diseases classified elsewhere; J02.9 Acute pharyngitis, unspecified; Z88.5 Allergy status to narcotic agent; F17.210 Nicotine dependence, cigarettes, uncomplicated
CPT/HCPCS: 99212; G0463